=== PATIENT | female | born 1990 | race Caucasian/White ===

== ENCOUNTER 2017-03-13 11:09 | Emergency (ER) | payer MEDICAID ==
[2017-03-13 12:27] LABS: BASOPHIL % 0.4 % (0-2); PLATELET COUNT 281 x10^3mcL (130-400); RED CELL DISTRIBUTION WIDTH 15.4 % (11.5-14.5)
[2017-03-13 12:43] LABS: CALCIUM 8.8 mg/dL (8.5-10.1); CARBON DIOXIDE 28.4 mmol/L (21-32); CHLORIDE SERUM 105 mmol/L (98-107); CREATININE SERUM 0.8 mg/dL (0.6-1.0); GFR1 > 60 mL/min; GLUCOSE SERUM 104 mg/dL (74-106); POTASSIUM SERUM 3.6 mmol/L (3.5-5.1); SODIUM SERUM 140 mmol/L (136-145)
[2017-03-13 12:48] LABS: ALBUMIN 3.7 g/dL (3.4-5.0); ALKALINE PHOSPHATASE 99 U/L (46-116); ALT/SGPT 26 U/L (14-59); AST/SGOT 22 U/L (15-37); BILIRUBIN TOTAL 0.4 mg/dL (0.20-1.00); TOTAL PROTEIN, SERUM 7.5 g/dL (6.4-8.2)
[2017-03-13 13:34] VITALS: BP 103/60
== END 2017-03-13 13:34 | disposition home or self-care (01) ==
LOC: ED 11:09
PROVIDERS: Emergency Medicine
DX: R53.1 Weakness (principal); N93.9 Abnormal uterine and vaginal bleeding, unspecified

== ENCOUNTER 2017-04-02 22:01 | Emergency (ER) | payer MEDICAID ==
[~2017-04-02] VITALS: Ht 152.4 cm; Wt 74.4 kg
[2017-04-02 22:56] LABS: BASOPHIL % 1.3 % (0-2); PLATELET COUNT 243 x10^3mcL (130-400)
[2017-04-02 22:59] LABS: RED CELL DISTRIBUTION WIDTH 15.2 % (11.5-14.5)
[2017-04-03 00:10] VITALS: BP 118/62
== END 2017-04-03 00:10 | disposition home or self-care (01) ==
LOC: ED 22:01
PROVIDERS: Emergency Medicine
DX: N93.8 Other specified abnormal uterine and vaginal bleeding (principal)
CPT/HCPCS: 36415

== ENCOUNTER 2017-04-04 04:51 | Emergency (ER) | payer MEDICAID ==
[2017-04-04 06:24] VITALS: BP 127/55
== END 2017-04-04 06:25 | disposition home or self-care (01) ==
LOC: ED 04:51
DX: N93.8 Other specified abnormal uterine and vaginal bleeding (principal); Z79.3 Long term (current) use of hormonal contraceptives; Z79.1 Long term (current) use of non-steroidal anti-inflammatories (NSAID)
CPT/HCPCS: J1885